=== PATIENT | male | born 1990 | race Two or more races ===

== ENCOUNTER 2019-06-30 09:48 | Emergency (ER) | payer OTHER ==
[~2019-06-30] VITALS: Ht 170.2 cm; Wt 73.9 kg
--- NOTE | 2019-06-30 09:58 | NUR ---
bibra86 and lapd, from street, agitated running through traffic, versed 5 mg given by emt. On room air, breathing evenly and unlabored. connected to the monitor and pulse ox. kept comfortable, sitter at bedside for constant monitoring. Will continue to monitor accordingly.
--- NOTE | 2019-06-30 10:00 | NUR ---
SEEN AND EXAMINED BY .
--- NOTE | 2019-06-30 10:40 | NUR ---
URINE SEPCIMEN COLLECTED AND SENT TO LAB.
--- NOTE | 2019-06-30 10:44 | NUR ---
ER PHLEB AT BEDSIDE FOR BLOOD DRAW
[2019-06-30 10:47] LABS: APPEARANCE,URINE Clear (CLEAR); BILIRUBIN,URINE SMALL (NEGATIVE); BLOOD, URINE Negative Ery/uL (NEGATIVE); COLOR,URINE Yellow (YELLOW); KETONES,URINE Trace (NEGATIVE); LEUKOCYTE ESTERASE ,URINE Negative (NEGATIVE); NITRITE, URINE Negative (NEGATIVE); PH,URINE 5.5 (5.0-8.0); PROTEIN,URINE 30 mg/dl (NEGATIVE); UGLUCOSE Negative (NEGATIVE); UROBILINOGEN,URINE 0.2 EU/dL (0.2)
[2019-06-30 10:49] LABS: BASOPHILS # (AUTO) 0.1 /CMM (0.0-0.2); BASOPHILS % (AUTO) 0.5 % (0.0-2.0); EOSINOPHILS % (AUTO) 0.1 % (0.0-6.0); HEMATOCRIT 38 % (39-51); HEMOGLOBIN 12.9 g/dL (13.5-17.5); LYMPHOCYTES # (AUTO) 1.5 /CMM (0.8-4.8); LYMPHOCYTES % (AUTO) 7.3 % (20.0-44.0); MEAN CORPUSCULAR HGB CONC 34 g/dl (31.0-36.0); MEAN CORPUSCULAR VOLUME 93 fL (80-96); MONOCYTES # (AUTO) 1.3 /CMM (0.1-1.30); MONOCYTES % (AUTO) 6.5 % (2.0-12.0); NEUTROPHILS % (AUTO) 85.6 % (43.0-81.0); PLATELET COUNT (AUTO) 266 /CMM (150-450); RED BLOOD CELL COUNT(AUTO) 4.12 MIL/uL (4.5-6.0); WHITE BLOOD COUNT (AUTO) 19.9 K/uL (4.3-11.0)
[2019-06-30 10:52] LABS: BACTERIA,URINE Rare /HPF (None Seen); RBC,URINE 0-2 /HPF (0-2); SQUAMOUS EPITHELIAL CELL,UR Rare /HPF (None Seen); WBC,URINE 0-2 /HPF (0-3)
[2019-06-30 10:56] LABS: CALCIUM, SERUM 8.7 mg/dL (8.5-10.1); CARBON DIOXIDE 25 mmol/L (21-32); CHLORIDE 100 mmol/L (98-107); CREATININE 1.2 mg/dL (0.6-1.3); GLUCOSE 56 mg/dL (74-106); POTASSIUM 3.2 mmol/L (3.5-5.1); SODIUM SERUM 138 mmol/L (136-145); UREA NITROGEN, BLOOD 20 mg/dL (7-18)
[2019-06-30 11:02] LABS: ALANINE AMINOTRANSFERASE 63 U/L (12-78); ALCOHOL, BLOOD < 3 mg/dL (0-0); ALKALINE PHOSPHATASE 65 U/L (46-116); ASPARTATE AMINOTRANSFERASE 122 U/L (15-37); BILIRUBIN,DIRECT 0.2 mg/dL (0.0-0.2); BILIRUBIN,TOTAL 0.8 mg/dL (0.2-1.0); TOTAL PROTEIN, SERUM 7.6 g/dL (6.4-8.2)
[2019-06-30 11:03] LABS: ACETAMINOPHEN 0 ug/ml (10-30); SALICYLATE 2.3 mg/dL (2.8-20.0)
--- NOTE | 2019-06-30 16:09 | NUR ---
SW CONSULT MARKOS consult was requested by ER staff for the pts behavior. MARKOS met with the pt at bedside. Pt is a 28 year old male. Pt appeared to be in a manic mood and presented with an agitated affect. Pt appeared to be resistant to care. Pt stated that he does not have any suicidal ideation or homicidal ideation. Pt denied hallucinations as well. Pt stated that he wanted to return to the streets. MARKOS provided the pt with homeless resources and placed a copy in the charts. Pt refused to sign the homeless waiver or state where he will be going.
[2019-06-30 17:37] VITALS: BP 135/66
--- NOTE | 2019-06-30 17:37 | NUR ---
Patient given written and verbal discharge instructions. Patient verbalizes understanding of instructions. Patient is ambulatory with steady gait. Refuses offer of detention placement. Patient given list of available shelters in surrounding area.
== END 2019-06-30 17:37 | disposition home or self-care (01) ==
LOC: ER 09:48
DX: F15.129 Other stimulant abuse with intoxication, unspecified (principal); R45.1 Restlessness and agitation; R40.0 Somnolence
CPT/HCPCS: 36415; 80048; 80076; 80305; 80307; 80329; 81001; 85025; 99283; G0480; 81000-TC